=== PATIENT | male | born 1990 | race Two or more races ===

== ENCOUNTER 2020-12-15 05:40 | Emergency (ER) | payer BC ==
[2020-12-15] MEDS ORDERED: traMADol 50 MG Tab PO ONE (06:09)
[2020-12-15] MEDS ORDERED: Ibuprofen 600 MG Tab PO ONE (06:09)
--- NOTE | 2020-12-15 06:09 | EDM.PDOC ---
<LemuelMaurisio morales - Last Filed: 12/15/20 06:09> ED HPI GENERAL MEDICAL PROBLEM - General Chief Complaint: Lower Extremity Injury/Pain Stated Complaint: RIGHT ANKLE INJURY Time Seen by Provider: 12/15/20 05:57 - History of Present Illness INITIAL COMMENTS - FREE TEXT/NARRATIVE: HISTORY AND PHYSICAL: History of present illness: This is a 30-year-old gentleman who presents ER today complaining of pain to his right ankle since Monday. Patient reports he has no clear memory recollection of injuring his ankle but remembers that starting Monday he started having pain and discomfort to the medial malleolus of his right ankle. Patient denies any recent fall, exertion, inversion or eversion injuries. Patient reports he had significant dental pain discomfort with weightbearing or ambulation. Patient reports he has had no prior significant injuries to his right ankle other than mild sprains in the past. Patient denies any history of hypertension, diabetes, liver, lung, kidney problems. Patient has no known drug allergies. Patient denies any tobacco alcohol or drugs. Review of systems: As per history of present illness and below otherwise all systems reviewed and negative. Past medical history: As per history of present illness and as reviewed below otherwise noncontributory. Surgical history: As per history of present illness and as reviewed below otherwise noncontributory. Social history: No reported history of drug or alcohol abuse. Family history: As per history of present illness and as reviewed below otherwise noncontributory. Physical exam: This patient was seen and evaluated during the 2019 SARS-CoV-2 novel coronavirus pandemic period. Community viral transmission is ongoing at time of this encounter and the emergency department is operating under pandemic response procedures. Constitutional: Patient is oriented to person, place, and time. Appears well- developed and well-nourished. No distress. HEENT: Moist mucous membranes Head: Normocephalic and atraumatic Eyes: Right eye exhibits no discharge. Left eye exhibits no discharge. No scleral icterus Neck: Normal range of motion. No tracheal deviation present. Cardiovascular: Normal rate and regular rhythm. Pulmonary: Effort normal, no respiratory distress. Abdominal: No distention Musculoskeletal: Normal range of motion Neurologic: Alert and oriented to person, place and time. Skin: [place], warm and dry. Psychiatric: Normal mood and affect. Behavior is normal. Judgment and thought content normal. Nursing note and vital signs have been reviewed Patient's ER physical exam is significant for pain and discomfort to his medial malleolus of his right ankle. Patient has no pain or discomfort to his lateral malleolus. Patient does have some soft tissue swelling to the lateral malleolus however he reports that this is his normal anatomical structure. Patient's pulses are intact. Patient has full range of motion but definitely has pain and discomfort with flexion and extension. Diagnostics: Right ankle x-ray Therapeutics: Motrin/Ultram Assessment and plan: 30-year-old gentleman who presents ER today complaining of pain to his right ankle. Patient is unaware of how or when he injured it but he reports he has been having pain since Monday, 4 days ago. Patient's blood pressure is markedly elevated here in the ED. Patient denies any history of hypertension. Is unclear whether or not this is related solely to his pain or combination of pain and essential hypertension. Patient will need to follow-up with his primary care physician for further evaluation of his hypertension once discharged. Definitive disposition and diagnosis as appropriate pending reevaluation and review of above. right ankle Pain Score (Numeric/FACES): 9 - Related Data Allergies Allergy/AdvReac Type Severity Reaction Status Date / Time No Known Allergies Allergy Verified 12/15/20 05:57 Home Meds: Home Meds . [No Known Home Meds] 12/15/20 [History] Past Medical History - Past Health History Medical/Surgical History: Denies Medical/Surgical History - Infectious Disease History Infectious Disease History: Reports: Chicken Pox Review of Systems - Review of Systems Review Of Systems: See Below ED EXAM, GENERAL - Physical Exam Exam: See Below Departure - Departure Disposition: Home, Self-Care 01 Clinical Impression: Elevated blood pressure reading, Ankle sprain - Discharge Information Instructions: Ankle Sprain, [id number], Hypertension, Adult, [id number] Referrals: PCP,None [Primary Care Provider] - Forms: ED Department Discharge Additional Instructions: You evaluate today on an emergent basis. At this time there was no evidence of any fracture of your ankle. I do recommend the use of an Koffi bandage to your ankle and to keep it elevated. Please use Tylenol and Motrin for pain relief and please use ice 20 minutes 4 times a day. Please follow-up with orthopedics. Please use: Tylenol 500-1000mg every 6 hours (DO NOT TAKE MORE THAN 4000mg in 1 day) Ibuprofen 400mg every 6 hours (Take with food as it can cause ulcers, GI upset) Example schedule: 8:00 AM (Tylenol 500-1000mg) 11:00 AM (Ibuprofen 400mg) 2:00 PM (Tylenol 500-1000mg) 5:00 PM (Ibuprofen 400mg) Ice the area 20 minutes 4 times per day [facility] [address], [address] [place] [address] The patient is informed of any results of their evaluation and diagnostic workup and all questions are answered. They are given discharge instructions and return precautions. The patient is stable for discharge. The patient states they understand and agree with the plan and that they will return if their symptoms get worse or if they have any new concerns. The following information is given to patients seen in the emergency department who are being discharged to home. This information is to outline your options for follow-up care. We provide all patients seen in our emergency department with a follow-up referral. The need for follow-up, as well as the timing and circumstances, are variable depending upon the specifics of your emergency department visit. If you don't have a primary care physician on staff, we will provide you with a referral. We always advise you to contact your personal physician following an emergency department visit to inform them of the circumstance of the visit and for follow-up with them and/or the need for any referrals to a consulting specialist. The emergency department will also refer you to a specialist when appropriate. This referral assures that you have the opportunity for follow-up care with a specialist. All of these measure are taken in an effort to provide you with optimal care, which includes your follow-up. Under all circumstances we always encourage you to contact your private physician who remains a resource for coordinating your care. When calling for follow-up care, please make the office aware that this follow-up is from your recent emergency room visit. If for any reason you are refused follow-up, please contact the [facility] Emergency Department at and asked to speak to the emergency department charge nurse. Sepsis Event Note (ED) - Evaluation Sepsis Screening Result: No Definite Risk <Naseem,Hira C - Last Filed: 12/15/20 08:18> ED HPI GENERAL MEDICAL PROBLEM - History of Present Illness INITIAL COMMENTS - FREE TEXT/NARRATIVE: Patient was signed out to me by Dr. Hdez pending x-ray at 6 AM I did reevaluate the patient and patient was resting comfortably on stretcher. On my evaluation the patient did have right medial malleoli or tenderness without any erythema, warmth. The patient at this time stated that the pain medication had significantly helped with his pain. At the time of my reevaluation the patient's x-ray had not yet been read. The radiological images were viewed by myself along with reading the report from the radiologist. Right ankle x-ray reveals no evidence of fracture or dislocation with the ankle mortise intact. There is some soft tissue swelling. After imaging I did discuss the results with the patient. I did discuss the use of Tylenol and Motrin for pain relief and to use an Koffi bandage for compression. I recommended that he keep his extremity elevated while at home and to use ice 20 minutes 4 times a day. I did discuss with him that he could use crutches and that he should follow-up with orthopedics. He was amenable to discharge at this time and had no further questions. DISPOSITION: The patient was discharged home in stable condition. The patient will follow up with orthopedics within 1 week CONDITION: Fair PROCEDURES: None FINAL IMPRESSION(S)/DIAGNOSES: 1. Acute right ankle sprain DME: Crutches Indication: Right ankle sprain Benefit: Ambulation Duration: Until follow-up with orthopedics Hira Gusman M.D. Course - Vital Signs Last Recorded V/S: Last Vital Signs Temp 35.6 C L 12/15/20 05:57 Pulse 111 H 12/15/20 05:57 Resp 18 12/15/20 05:57 BP 169/114 H 12/15/20 05:57 Pulse Ox 92 L 12/15/20 05:57 - Orders/Labs/Meds Orders: Active Orders 24 hr Category Date Time Status DME for Discharge [COMM] Stat Oth 12/15/20 08:03 Ordered Meds: Medications Discontinued Medications Generic Name Dose Route Start Last Admin Trade Name Freq PRN Reason Stop Dose Admin Ibuprofen 600 mg 12/15/20 06:09 12/15/20 06:38 Ibuprofen 600 Mg Tab PO 12/15/20 06:10 600 mg ONETIME ONE Administration Tramadol HCl 50 mg 12/15/20 06:09 12/15/20 06:39 Tramadol 50 Mg Tab PO 12/15/20 06:10 50 mg ONETIME ONE Administration Departure - Departure Time of Disposition: 08:03 - Discharge Information *PRESCRIPTION DRUG MONITORING PROGRAM REVIEWED*: No *COPY OF PRESCRIPTION DRUG MONITORING REPORT IN PATIENT KENDELL: No Sepsis Event Note (ED) - Focused Exam Vital Signs: Vital Signs Temp Pulse Resp BP Pulse Ox 12/15/20 05:57 35.6 C L 111 H 18 169/114 H 92 L - My Orders Last 24 Hours: My Active Orders 12/15/20 08:03 DME for Discharge [COMM] Stat - Assessment/Plan Last 24 Hours: My Active Orders 12/15/20 08:03 DME for Discharge [COMM] Stat
--- NOTE | 2020-12-15 07:26 | CR ---
Indication: Pain and swelling. Technique: Right ankle 3 views. Comparison: None. Findings: No acute fracture or dislocation. Ankle mortise is intact. Mild soft tissue swelling about the ankle. Impression: Mild soft tissue swelling around the ankle. No other acute findings. Dictated by Flores Marr MD @ Dec 15 2020 7:24AM Signed by Dr. Flores Marr @ Dec 15 2020 7:25AM
== END 2020-12-15 08:30 | disposition home or self-care (01) ==
LOC: MW.ED 05:40
DX: S93.401A Sprain of unspecified ligament of right ankle, initial encounter (principal); R03.0 Elevated blood-pressure reading, without diagnosis of hypertension; X58.XXXA Exposure to other specified factors, initial encounter
CPT/HCPCS: 73610; 99283; A9270

== ENCOUNTER 2021-04-26 06:09 | Emergency (ER) | payer BC ==
[2021-04-26] MEDS ORDERED: Ketorolac 15 MG/ML SDV IM ONE (07:00)
--- NOTE | 2021-04-26 08:17 | CR ---
INDICATION: Fever . Comparison :none. TECHNIQUE: Portable AP chest. FINDINGS: A 6 x 5 cm area of consolidation right upper lobe indicating pneumonia. No pneumothorax or pleural effusion. Normal size cardiac silhouette. IMPRESSION: 1. A 6 x 5 cm area of consolidation right upper lobe most likely representing pneumonia. 2. Followup chest radiograph after treatment with appropriate antibiotics suggested. Dictated by Casimiro Bocangera MD @ 04/26/2021 8:15:[address] Casimiro Bocanegra @ Apr 26 2021 8:15AM
--- NOTE | 2021-04-26 11:13 | CT ---
INDICATION: Right upper lobe infiltrate; further assessment ; Rule out PE. COMPARISON: Portable AP chest April 26, 2021. TECHNIQUE: CT chest with intravenous contrast; coronal and sagittal reformats. FINDINGS: No evidence of pulmonary thromboembolism. Extensive areas of alveolar consolidation both lungs diffuse; diagnostic of COVID-19 pneumonia. Large area of alveolar consolidation right upper lobe again secondary to COVID pneumonia. No abnormal mediastinal or hilar lymphadenopathy. No evidence of pleural effusion. No evidence of aortic aneurysm or dissection. Normal size cardiac silhouette without any evidence of pericardial effusion. Limited CT through the upper abdomen is unremarkable. 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 IMPRESSION: 1. Extensive patchy areas of scattered alveolar consolidation both lungs diffuse; largest area in the right upper lobe; diagnostic of COVID-19 infection. 2. No evidence of pulmonary thromboembolism. Please note that all CT scans at this facility use dose modulation, iterative reconstruction, and/or weight-based dosing when appropriate to reduce radiation dose to as low as reasonably achievable. Dictated by Casimiro Bocanegra MD @ 04/26/2021 11:12:[address] Casimiro Bocanegra @ Apr 26 2021 11:12AM
--- NOTE | 2021-04-26 11:31 | EDM.PDOC ---
ED HPI GENERAL MEDICAL PROBLEM - General Chief Complaint: Fever Stated Complaint: FEVER Time Seen by Provider: 04/26/21 07:16 - History of Present Illness INITIAL COMMENTS - FREE TEXT/NARRATIVE: CHIEF COMPLAINT(S): Fever HISTORY OF PRESENT ILLNESS: This is a 30-year-old man with a past medical history of obesity and reported preasthma and prehypertension who comes to the emergency department with a chief complaint of fever. The patient states that for approximately 5 days now he has been experiencing a fever. She states that this started in the evening on with some chills. The highest fever he got was 102.3 and he has associated cough which is nonproductive and a stuffy nose. He states that his tested positive approximately 4 days ago for Covid but he tested negative on . He has not yet taken any medications. He did not have any change in smell but does have a decreased appetite. He states he has been taken Motrin and DayQuil with some relief. He has had a headache in addition to all the symptoms in the back of his head without any associated double vision, blurry vision, numbness, tingling, or weakness. He states that he is not vaccinated but at sometimes he does feel lightheaded. In addition to this he is concerned because his blood pressure has been elevated throughout the evening. His who is on his cell phone states that his blood pressure has been in the 150s systolic all throughout the evening and she thinks he is to be on medication for this. He denies any chest pain, lower extremity edema, recent travel recent surgery or prior history of DVT or PE. REVIEW OF SYSTEMS: Constitutional: Positive for fever and decreased appetite Eyes: Denies eye pain Ears, Nose, Mouth, & Throat: Positive for sinus congestion denies earache Cardiovascular: Denies chest pain Respiratory: Positive for cough Gastrointestinal: Denies Nausea, vomiting, diarrhea, hematochezia. Genitourinary: Denies hematuria Skin:Denies a rash MSK: Denies joint pain Neurological: Positive for headache. Denies blurred vision, numbness, tingling, weakness psychiatric: Denies depression PAST MEDICAL HISTORY: As per history of present illness and as reviewed below otherwise noncontributory. SURGICAL HISTORY: As per history of present illness and as reviewed below otherwise noncontributory. SOCIAL HISTORY: As per history of present illness and as reviewed below otherwis e noncontributory. FAMILY HISTORY: As per history of present illness and as reviewed below otherwise noncontributory. EXAMINATION OF ORGAN SYSTEMS/BODY AREAS: Constitutional: Blood pressure was 130/80, heart rate 103, respiratory rate 18 with an oxygen saturation of 98% on room air. Temperature 38.9 General: Morbidly obese gentleman who does not appear to be in acute distress. Psychiatric: Appropriate mood and affect. Eyes: No scleral icterus or conjunctival erythema ENMT: Moist mucous membranes. No pharyngeal erythema Cardiovascular: Regular, rate, and rhythm. No gallops, murmurs, or rubs. Bilateral upper extremity pulses symmetric and intact. No peripheral edema. No JVD. Respiratory: Lungs clear to auscultation bilaterally. No wheezes, rales, or rhonchi. Gastrointestinal: Soft, non-tender, non-distended. Normoactive bowel sounds Genitourinary: No suprapubic tenderness Musculoskeletal: Normal range of motion. Skin: No lesions or abrasions. Neurological: Alert, GCS 15 MEDICAL DECISION MAKING AND COURSE IN THE ED WITH INTERPRETATION/REVIEW OF DIAGNOSTIC STUDIES: This is a 30-year-old man with a past medical history of obesity and reported preasthma and prehypertension who comes to the emergency department with 5 days of fever, headache, and decreased appetite with a known COVID-19 exposure. At this time we will provide the patient with Toradol for his headache and for the fever. Will obtain a Covid swab and obtain a chest x- ray. I did discuss with the patient and his on the phone that I do not believe any blood pressure medication is indicated at this time. I did discuss with him that his blood pressure here is within normal limits and that it would be important to follow-up with a primary care physician so that if the medication needs to be started they can follow-up for the results. At this time there is no emergent or urgent need to begin an antihypertensive. They were amenable to this plan. The radiological images were viewed by myself along with reading the report from the radiologist. Chest x-ray reveals a right upper lung consolidation likely representing a pneumonia. Given the chest x-ray findings and given that it is pretty atypical for a COVID- 19 pneumonia to present with an upper lobe pneumonia I did discuss exposures with the patient. He states that he has had a false positive TB test in the past but has never been diagnosed with TB. He has had the appropriate screening and has never tested positive. At this time I did discuss with him that given the upper lung pneumonia I would like to obtain a CT angiogram to evaluate for pulmonary embolism. He was amenable to this plan. After a lengthy discussion to obtain an angiogram of the chest the patient contacted his father on the phone. His father stated that he was in the emergency department himself a while back and became short of breath with the IV contrast. I did discuss with the father and the patient at this time that although he may have had a reaction to the contrast dye his son may not have the reaction. I did discuss with them at this time that he is in the appropriate place if he is to have a reaction and I do believe the angiogram of the chest is indicated and the benefit outweighed the risk. Therefore they were amenable to obtaining the CT. After placement of the IV the patient had a vasovagal syncopal episode falling forward. He did not hit his head or have any loss of consciousness. The patient was diaphoretic. I did obtain a [id number] glucose which was normal. I did provide patient with 1 L of lactated Ringer's bolus while we await CT. Laboratory: [id number] glucose was 143, COVID-19 was positive. The radiological images were viewed by myself along with reading the report from the radiologist. CT angiogram of the chest does not reveal any evidence of pulmonary embolism. There is extensive patchy areas of scattered alveolar consolidation in both lungs with the largest area in the right upper lobe diagnostic of COVID-19 infection. I did discuss the results with the patient. At this time I did discuss that he needed to isolate at home and discussed treatment plan. He was amenable to discharge at this time and was given strict return precautions. Prior to discharge the patient inquired about obtaining steroids as his was put on steroids when she was diagnosed with COVID-19. I discussed with him at this time that according to protocol and given that he is not requiring supplemental oxygenation that steroids are not indicated at this time. He is to monitor his oxygen saturation at home and is to return if it decreases. He was amenable to discharge at this time and had no further questions DISPOSITION: The patient was discharged home in stable condition. The patient will follow up with primary care physician CONDITION: Fair PROCEDURES: None FINAL IMPRESSION(S)/DIAGNOSES: 1. Acute COVID-19 infection Hira Gusman M.D. - Related Data Allergies Allergy/AdvReac Type Severity Reaction Status Date / Time No Known Allergies Allergy Verified 04/26/21 06:59 Home Meds: Home Meds Azithromycin 500 mg PO ONETIME #1 tablet 04/26/21 [Rx] Azithromycin [Zithromax] 250 mg PO DAILY #4 tab 04/26/21 [Rx] Ondansetron [Zofran ODT] 4 mg PO Q6H PRN #8 tab.dis 04/26/21 [Rx] Past Medical History - Past Health History Medical/Surgical History: Denies Medical/Surgical History HEENT History: Reports: None Cardiovascular History: Reports: None Respiratory History: Reports: None Gastrointestinal History: Reports: None Genitourinary History: Reports: None Musculoskeletal History: Reports: None Neurological History: Reports: None Psychiatric History: Reports: None Endocrine/Metabolic History: Reports: None Hematologic History: Reports: None Immunologic History: Reports: None Oncologic (Cancer) History: Reports: None Dermatologic History: Reports: None - Infectious Disease History Infectious Disease History: Reports: Chicken Pox - Past Surgical History Head Surgeries/Procedures: Reports: None Social & Family History - Family History Family Medical History: No Pertinent Family History - Tobacco Use Tobacco Use Status *Q: Never Tobacco User Second Hand Smoke Exposure: No - Caffeine Use Caffeine Use: Reports: None - Recreational Drug Use Recreational Drug Use: No ED ROS GENERAL - Review of Systems Review Of Systems: See Below ED EXAM, GENERAL - Physical Exam Exam: See Below Course - Vital Signs Last Recorded V/S: Last Vital Signs Temp 37.2 C 04/26/21 09:19 Pulse 98 04/26/21 09:19 Resp 18 04/26/21 09:19 BP 124/86 04/26/21 09:19 Pulse Ox 94 L 04/26/21 09:19 - Orders/Labs/Meds Labs: Laboratory Tests 04/26/21 04/26/21 Range/Units 08:40 09:16 POC Glucose 143 H (70-99) mg/dL SARS-CoV-2 RNA (RONALD) POSITIVE H (NEGATIVE) Meds: Medications Discontinued Medications Generic Name Dose Route Start Last Admin Trade Name Freq PRN Reason Stop Dose Admin Iopamidol 100 ml 04/26/21 17:06 04/26/21 17:06 Iopamidol 755 Mg/Ml 500 Ml Multipack Bottle IVPUSH 04/26/21 17:07 100 ml ONETIME STA Administration Ketorolac Tromethamine 30 mg 04/26/21 07:00 04/26/21 07:15 Ketorolac 15 Mg/Ml Sdv IM 04/26/21 07:01 30 mg ONETIME ONE Administration Departure - Departure Time of Disposition: 11:26 Disposition: Home, Self-Care 01 Condition: Fair Clinical Impression: COVID, Pneumonia - Discharge Information Prescriptions: Azithromycin 500 mg PO ONETIME #1 tablet Azithromycin [Zithromax] 250 mg PO DAILY #4 tab Ondansetron [Zofran ODT] 4 mg PO Q6H PRN #8 tab.dis PRN Reason: Nausea/Vomiting Instructions: What You Should Know About COVID-19 to Protect Yourself and Others - CDC, 10 Things You Can Do to Manage Your COVID-19 Symptoms at Home - CDC (02/26/2020), Fever, Adult, [id number], Community-Acquired Pneumonia, Adult, [id number] Referrals: Misbah Crowell MD [Primary Care Provider] - Forms: ED Department Discharge Additional Instructions: You were evaluated today on an emergent basis. At this time we did undergo multiple imaging studies. Your chest x-ray did show a right upper lobe pneumonia. As discussed with you the this is atypical and we did obtain a Covid swab and a CT to further differentiate if we needed to work-up for tuberculosis given your false positive test in the past. The CT of your chest did not reveal any clots and according to the radiologist they are saying that this pattern on CT including the right upper lobe pneumonia is consistent with COVID-19 pneumonia. At this time in discussion with you we decided to do antibiotics for a 5-day course. I will provide you with Zofran for nausea relief. This can be used every 6 hours as needed for nausea. As discussed your blood pressure was a little bit elevated when he arrived to the emergency department but then returned to normal. At this time I do not believe any blood pressure medication is indicated and I would like you to follow-up with your primary care physician for further management if you are concerned about your hypertension. As discussed I do not recommend taking your blood pressure randomly as it is inaccurate as her blood pressure fluctuates throughout the day. If you are to check your blood pressure it is going to be in the morning approximately 15 minutes after awakening and while sitting in a position for approximately 5 minutes and relaxed. While in the emergency department you did have a syncopal episode which I do believe is secondary to vasovagal syncope and likely mild dehydration given that you have not been tolerating fluid as much as before. I recommend continued fluid hydration at home with Gatorade and Pedialyte. In addition I know your father was concerned about a allergic reaction with contrast. We did obtain the CT today with contrast and you did not have a reaction. You should take acetaminophen 500-1000 mg every 6 hours as needed for fever and muscle aches. Please drink plenty of fluids and get plenty of rest over the next several days. We would recommend that she get a pulse oximeter from the pharmacy to keep an eye on your oxygen level. If your oxygen level drops below 91%, you should return to the ED for evaluation. As discussed I do believe that given you do snore you have a degree of sleep apnea therefore I do not believe you should check your oxygen saturation at night as it will likely be lower than 91% given the presumed obstructive sleep apnea. You should return to the ER sooner if you start having any symptoms of shortness of breath or any other new or concerning symptoms. 1. Your COVID-19 screening is positive. That means you do have the coronavirus and you are considered contagious. Your vital signs and oxygen saturation are well enough that you were able to monitor your symptoms at home. Continue to monitor for trouble breathing, new confusion or inability to arouse, bluish lips or face or any of the other symptoms we discussed -if this occurs please return to the emergency room. 2. Please self quarantine over the next 10 days. Inform any persons that you have been in contact with since you started becoming symptomatic that you have tested positive; they should be made aware and take the appropriate steps as needed. 3. May alternate Tylenol and ibuprofen as needed for pain and fever management. 4. The [facility] department will be calling you and following up with you. The [place] COVID 19 Hotline phone number , They are open Monday - Monday 7am - 7pm. Follow up with your primary care provider for re-evaluation and re-testing after the 10 day quarantine and discuss when you should be seen. [facility] - Primary [facility] [address] [place] [address] [facility] [address] [place] [address] The patient is informed of any results of their evaluation and diagnostic workup and all questions are answered. They are given discharge instructions and return precautions. The patient is stable for discharge. The patient states they understand and agree with the plan and that they will return if their symptoms get worse or if they have any new concerns. The following information is given to patients seen in the emergency department who are being discharged to home. This information is to outline your options for follow-up care. We provide all patients seen in our emergency department with a follow-up referral. The need for follow-up, as well as the timing and circumstances, are variable depending upon the specifics of your emergency department visit. If you don't have a primary care physician on staff, we will provide you with a referral. We always advise you to contact your personal physician following an emergency department visit to inform them of the circumstance of the visit and for follow-up with them and/or the need for any referrals to a consulting specialist. The emergency department will also refer you to a specialist when appropriate. This referral assures that you have the opportunity for follow-up care with a specialist. All of these measure are taken in an effort to provide you with optimal care, which includes your follow-up. Under all circumstances we always encourage you to contact your private physician who remains a resource for coordinating your care. When calling for follow-up care, please make the office aware that this follow-up is from your recent emergency room visit. If for any reason you are refused follow-up, please contact the [facility] Emergency Department at and asked to speak to the emergency department charge nurse. Sepsis Event Note (ED) - Evaluation Sepsis Screening Result: Possible Severe Sepsis Risk
[2021-04-26] MEDS ORDERED: Iopamidol 755 MG/ML 500 ML Multipack Bottle IVPUSH STA (17:06)
== END 2021-04-26 11:43 | disposition home or self-care (01) ==
LOC: MW.ED 06:09
DX: U07.1 COVID-19 (principal); J12.82 Pneumonia due to coronavirus disease 2019; E66.9 Obesity, unspecified; Z68.41 Body mass index [BMI] 40.0-44.9, adult
CPT/HCPCS: 71045; 71275; 82947; 87635; 96372; 99284; J1885; Q9967; U0002

== ENCOUNTER 2021-04-30 07:49 | Emergency (ER) | payer OTHER, BC ==
[2021-04-30] MEDS ORDERED: Acetaminophen 500 MG Tab PO ONE (07:55)
[2021-04-30] MEDS ORDERED: Dexamethasone 10 MG/ML SDV IVPUSH ONE (07:55)
[2021-04-30] MEDS ORDERED: Sodium Chloride 0.9% 10 ML Syringe FLUSH PRN (07:55)
[2021-04-30] MEDS ORDERED: Sodium Chloride 0.9% 2.5 ML Syringe FLUSH PRN (07:55)
--- NOTE | 2021-04-30 07:58 | EDM.PDOC ---
ED HPI GENERAL MEDICAL PROBLEM - General Stated Complaint: SHORTNESS OF BREATH Time Seen by Provider: 04/30/21 07:52 Source of Information: Reports: Patient History Limitations: Reports: No Limitations - History of Present Illness INITIAL COMMENTS - FREE TEXT/NARRATIVE: 30-year-old male presents for worsening shortness of breath and hypoxia in setting of known COVID-19 infection. Patient was diagnosed with COVID-19 on 830. He was sent home with azithromycin as he also had a right upper lobe infiltrate concerning for bacterial superinfection. He has been monitoring his oxygen level and notes that this morning it was in the low 80s. He also noted a period of low heart rate in the 40s and felt like he was about to pass out. He denies any chest pain. He does feel shortness of breath. He notes a persistent cough and fever. - Related Data Allergies Allergy/AdvReac Type Severity Reaction Status Date / Time No Known Allergies Allergy Verified 04/30/21 08:01 Home Meds: Home Meds Azithromycin 500 mg PO ONETIME #1 tablet 04/26/21 [Rx] Azithromycin [Zithromax] 250 mg PO DAILY #4 tab 04/26/21 [Rx] Ondansetron [Zofran ODT] 4 mg PO Q6H PRN #8 tab.dis 04/26/21 [Rx] Past Medical History - Past Health History Medical/Surgical History: Denies Medical/Surgical History HEENT History: Reports: None Cardiovascular History: Reports: None Respiratory History: Reports: None Gastrointestinal History: Reports: None Genitourinary History: Reports: None Musculoskeletal History: Reports: None Neurological History: Reports: None Psychiatric History: Reports: None Endocrine/Metabolic History: Reports: None Hematologic History: Reports: None Immunologic History: Reports: None Oncologic (Cancer) History: Reports: None Dermatologic History: Reports: None - Infectious Disease History Infectious Disease History: Reports: Chicken Pox - Past Surgical History Head Surgeries/Procedures: Reports: None Social & Family History - Family History Family Medical History: No Pertinent Family History - Caffeine Use Caffeine Use: Reports: None ED ROS GENERAL - Review of Systems Review Of Systems: Comprehensive ROS is negative, except as noted in HPI. ED EXAM, GENERAL - Physical Exam Exam: See Below Exam Limited By: No Limitations General Appearance: Alert, WD/WN, No Apparent Distress Ears: Hearing Grossly Normal Throat/Mouth: Normal Voice, No Airway Compromise Head: Atraumatic, Normocephalic Neck: Normal Inspection Respiratory/Chest: No Respiratory Distress, Lungs Clear, Normal Breath Sounds, No Accessory Muscle Use Cardiovascular: Normal Peripheral Pulses, Tachycardia Extremities: Normal Inspection Neurological: Alert, Normal Cognition, Normal Gait Psychiatric: Normal Affect, Normal Mood Skin Exam: Warm, Dry, Intact, Normal Color #1 Interpretation EKG Date: 04/30/21 Time: 08:11 Rhythm: NSR Rate (Beats/Min): 103 [place]: Normal P-Wave: Present QRS: Normal ST-T: Normal QT: Normal MS/PQ Interval: 143 EKG Interpretation Comments: sinus tachycardia, otherwise normal EKG Course - Vital Signs Last Recorded V/S: Last Vital Signs Temp 98 F 04/30/21 08:01 Pulse 109 H 04/30/21 08:01 Resp 20 04/30/21 08:01 BP 136/95 H 04/30/21 08:01 Pulse Ox 89 L 04/30/21 08:01 - Orders/Labs/Meds Orders: Active Orders 24 hr Category Date Time Status Pulse Oximetry [RC] ASDIRECTED Care 04/30/21 07:55 Active Sodium Chloride 0.9% [Saline Flush] Med 04/30/21 07:55 Active 10 ml FLUSH ASDIRECTED PRN Sodium Chloride 0.9% [Saline Flush] Med 04/30/21 07:55 Active 2.5 ml FLUSH ASDIRECTED PRN Saline Lock Insert [OM.PC] Stat Oth 04/30/21 07:55 Ordered Medication Orders Sodium Chloride (Sodium Chloride 0.9% 10 Ml Syringe) 10 ml FLUSH ASDIRECTED PRN PRN Reason: Keep Vein Open Last Admin: 04/30/21 08:06 Dose: 10 ml Documented by: FAUSTO Sodium Chloride (Sodium Chloride 0.9% 2.5 Ml Syringe) 2.5 ml FLUSH ASDIRECTED PRN PRN Reason: Keep Vein Open Last Admin: 04/30/21 08:06 Dose: 2.5 ml Documented by: FAUSTO Labs: Laboratory Tests 04/30/21 04/30/21 04/30/21 Range/Units 07:58 07:58 07:58 WBC 4.66 (4.0-11.0) K/uL RBC 4.81 (4.50-5.90) M/uL Hgb 15.2 (13.0-17.0) g/dL Hct 43.4 (38.0-50.0) % MCV 90.2 (80.0-98.0) fL MCH 31.6 (27.0-32.0) pg MCHC 35.0 (31.0-37.0) g/dL RDW Std Deviation 38.7 (28.0-62.0) fl RDW Coeff of Angelica 12 (11.0-15.0) % Plt Count 169 (150-400) K/uL MPV 9.50 (7.40-12.00) fL Neut % (Auto) 65.0 (48.0-80.0) % Lymph % (Auto) 25.3 (16.0-40.0) % [place] % (Auto) 9.7 (0.0-15.0) % Eos % (Auto) 0.0 (0.0-7.0) % Baso % (Auto) 0.0 (0.0-1.5) % Neut # (Auto) 3.0 (1.4-5.7) K/uL Lymph # (Auto) 1.2 (0.6-2.4) K/uL [place] # (Auto) 0.5 (0.0-0.8) K/uL Eos # (Auto) 0.0 (0.0-0.7) K/uL Baso # (Auto) 0.0 (0.0-0.1) K/uL Nucleated RBC % 0.0 /100WBC Nucleated RBCs # 0 K/uL INR APTT (18.6-31.3) SEC D-Dimer, Quantitative 0.82 H (0.0-0.50) mg/L FEU Sodium 137 (136-148) mmol/L Potassium 4.4 (3.5-5.1) mmol/L Chloride 101 (98-107) mmol/L Carbon Dioxide 27.8 (21.0-32.0) mmol/L BUN 12 (7.0-18.0) mg/dL Creatinine 1.4 H (0.8-1.3) mg/dL Est Cr Clr Drug Dosing 72.13 mL/min Estimated GFR (MDRD) 59.5 ml/min Glucose 114 H (74-106) mg/dL Lactic Acid (0.4-2.0) mmol/L Calcium 8.4 L (8.5-10.1) mg/dL Total Bilirubin 0.5 (0.2-1.0) mg/dL AST 57 H (15-37) IU/L ALT 67 H (14-63) IU/L Alkaline Phosphatase 52 (46-116) U/L Troponin I < 0.050 (0.000-0.056) ng/mL C-Reactive Protein 3.50 H (0.00-0.90) mg/dL B-Natriuretic Peptide (<100) PG/ML Total Protein 7.6 (6.4-8.2) g/dL Albumin 3.8 (3.4-5.0) g/dL Globulin 3.8 (2.6-4.0) g/dL Albumin/Globulin Ratio 1.0 (0.9-1.6) 04/30/21 04/30/21 04/30/21 Range/Units 07:58 07:58 07:58 WBC (4.0-11.0) K/uL RBC (4.50-5.90) M/uL Hgb (13.0-17.0) g/dL Hct (38.0-50.0) % MCV (80.0-98.0) fL MCH (27.0-32.0) pg MCHC (31.0-37.0) g/dL RDW Std Deviation (28.0-62.0) fl RDW Coeff of Angelica (11.0-15.0) % Plt Count (150-400) K/uL MPV (7.40-12.00) fL Neut % (Auto) (48.0-80.0) % Lymph % (Auto) (16.0-40.0) % [place] % (Auto) (0.0-15.0) % Eos % (Auto) (0.0-7.0) % Baso % (Auto) (0.0-1.5) % Neut # (Auto) (1.4-5.7) K/uL Lymph # (Auto) (0.6-2.4) K/uL [place] # (Auto) (0.0-0.8) K/uL Eos # (Auto) (0.0-0.7) K/uL Baso # (Auto) (0.0-0.1) K/uL Nucleated RBC % /100WBC Nucleated RBCs # K/uL INR 1.03 APTT 30.3 (18.6-31.3) SEC D-Dimer, Quantitative (0.0-0.50) mg/L FEU Sodium (136-148) mmol/L Potassium (3.5-5.1) mmol/L Chloride (98-107) mmol/L Carbon Dioxide (21.0-32.0) mmol/L BUN (7.0-18.0) mg/dL Creatinine (0.8-1.3) mg/dL Est Cr Clr Drug Dosing mL/min Estimated GFR (MDRD) ml/min Glucose (74-106) mg/dL Lactic Acid 0.6 (0.4-2.0) mmol/L Calcium (8.5-10.1) mg/dL Total Bilirubin (0.2-1.0) mg/dL AST (15-37) IU/L ALT (14-63) IU/L Alkaline Phosphatase (46-116) U/L Troponin I (0.000-0.056) ng/mL C-Reactive Protein (0.00-0.90) mg/dL B-Natriuretic Peptide < 2 (<100) PG/ML Total Protein (6.4-8.2) g/dL Albumin (3.4-5.0) g/dL Globulin (2.6-4.0) g/dL Albumin/Globulin Ratio (0.9-1.6) Meds: Medications Generic Name Dose Route Start Last Admin Trade Name Danielq PRN Reason Stop Dose Admin Sodium Chloride 10 ml 04/30/21 07:55 04/30/21 08:06 Sodium Chloride 0.9% 10 Ml Syringe FLUSH 10 ml ASDIRECTED PRN Administration Keep Vein Open Sodium Chloride 2.5 ml 04/30/21 07:55 04/30/21 08:06 Sodium Chloride 0.9% 2.5 Ml Syringe FLUSH 2.5 ml ASDIRECTED PRN Administration Keep Vein Open Discontinued Medications Generic Name Dose Route Start Last Admin Trade Name Freq PRN Reason Stop Dose Admin Acetaminophen 1,000 mg 04/30/21 07:55 04/30/21 08:05 Acetaminophen 500 Mg Tab PO 04/30/21 07:56 1,000 mg ONETIME ONE Administration Dexamethasone 6 mg 04/30/21 07:55 04/30/21 08:05 Dexamethasone 10 Mg/Ml Sdv IVPUSH 04/30/21 07:56 6 mg ONETIME ONE Administration - Re-Assessments/Exams Free Text/Narrative Re-Assessment/Exam: 04/30/21 08:00 Patient presents with hypoxia in setting of known COVID-19 infection. Patient's O2 sats to improve to the upper 90s with 2 L nasal cannula. Will get labs and chest x-ray. Will give Decadron. 04/30/21 09:21 D-dimer is elevated. Will get CTA to rule pulmonary embolism. 04/30/21 11:38 CTA does not reveal pulmonary embolism. Does reveal worsening Covid pneumonia. Will reach out for home oxygen has patient might benefit consider he came in hypoxic to 88% on room air and will desat with exertion. Departure - Departure Time of Disposition: 11:43 Disposition: Home, Self-Care 01 Condition: Fair Clinical Impression: COVID - Discharge Information Instructions: COVID-19: What to Do if You Are Sick - [facility] (08/27/2020) Referrals: PCP,None [Primary Care Provider] - Additional Instructions: The following information is given to patients seen in the emergency department who are being discharged to home. This information is to outline your options for follow-up care. We provide all patients seen in our emergency department with a follow-up referral. The need for follow-up, as well as the timing and circumstances, are variable depending upon the specifics of your emergency department visit. If you don't have a primary care physician on staff, we will provide you with a referral. We always advise you to contact your personal physician following an emergency department visit to inform them of the circumstance of the visit and for follow-up with them and/or the need for any referrals to a consulting specialist. The emergency department will also refer you to a specialist when appropriate. This referral assures that you have the opportunity for follow-up care with a specialist. All of these measure are taken in an effort to provide you with optimal care, which includes your follow-up. Under all circumstances we always encourage you to contact your private physician who remains a resource for coordinating your care. When calling for follow-up care, please make the office aware that this follow-up is from your recent emergency room visit. If for any reason you are refused follow-up, please contact the [facility] Emergency Department at and asked to speak to the emergency department charge nurse. Please follow up with your primary care physician. If you do not have a primary care physician, see below: [facility] [address], [place] [phone] My [facility] [address] [place], [place] [phone] [facility] [address] [place] [address] Sepsis Event Note (ED) - Focused Exam Vital Signs: Vital Signs Temp Pulse Resp BP Pulse Ox 04/30/21 08:01 98 F 109 H 20 136/95 H 89 L - My Orders Last 24 Hours: My Active Orders 04/30/21 07:55 Pulse Oximetry [RC] ASDIRECTED Sodium Chloride 0.9% [Saline Flush] 10 ml FLUSH ASDIRECTED PRN Sodium Chloride 0.9% [Saline Flush] 2.5 ml FLUSH ASDIRECTED PRN Saline Lock Insert [OM.PC] Stat - Assessment/Plan Last 24 Hours: My Active Orders 04/30/21 07:55 Pulse Oximetry [RC] ASDIRECTED Sodium Chloride 0.9% [Saline Flush] 10 ml FLUSH ASDIRECTED PRN Sodium Chloride 0.9% [Saline Flush] 2.5 ml FLUSH ASDIRECTED PRN Saline Lock Insert [OM.PC] Stat
[2021-04-30 08:34] LABS: BLOOD UREA NITROGEN,BUN 12 mg/dL (7.0-18.0); CARBON DIOXIDE,CO2 27.8 mmol/L (21.0-32.0); CHLORIDE,CL 101 mmol/L (98-107); GLUCOSE RANDOM 114 mg/dL (74-106); POTASSIUM,K 4.4 mmol/L (3.5-5.1); SODIUM,NA 137 mmol/L (136-148)
--- NOTE | 2021-04-30 09:33 | CR ---
Indication: COVID pneumonitis Technique: Chest 1 view Comparison: 04/26/2021 Findings/Impression: Cardiovascular and mediastinum: Heart size and vasculature are normal in caliber and appearance. Lungs and pleural space: Persistent but improved subtle right upper lobe infiltrate. A new smaller infiltrate appears to be present in the left upper lobe. Remainder of the lungs and pleural spaces are clear. Bones and soft tissues: No acute findings. Dictated by Chevy Evans MD @ 04/30/2021 9:32:19 AM (Electronically Signed)
--- NOTE | 2021-04-30 11:37 | CT ---
INDICATION: Positive COVID with worsening hypoxia. TECHNIQUE: CT chest PE was acquired with 75 cc Isovue 370 IV contrast. COMPARISON: April 26, 2021. FINDINGS: Heart and vasculature: Contrast opacification of the pulmonary arterial tree is adequate. No sign of pulmonary embolism. Heart size is normal. Thoracic aorta and pulmonary artery are normal in caliber. Lungs and pleural: Diffuse bilateral patchy ground-glass infiltrates have definitely worsened. No effusions and no pneumothorax. No pleural effusions, pleural thickening, or pneumothorax. Lymph nodes/mediastinum: No mediastinal, hilar, or axillary adenopathy. Chest wall: No masses. Upper abdomen: Normal. Bones: Unremarkable for age. IMPRESSION: 1. No pulmonary embolism. 2. Interval worsening of severe COVID pneumonitis. Please note that all CT scans at this facility use dose modulation, iterative reconstruction, and/or weight-based dosing when appropriate to reduce radiation dose to as low as reasonably achievable. Dictated by Chevy Evans MD @ 04/30/2021 11:36:42 AM (Electronically Signed)
== END 2021-04-30 14:10 | disposition home or self-care (01) ==
LOC: MW.ED 07:49
DX: U07.1 COVID-19 (principal); R00.0 Tachycardia, unspecified
CPT/HCPCS: 36415; 71045; 71275; 80053; 83605; 83880; 84484; 85025; 85379; 85610; 85730; 86140; 93005; 96374; 99285; A9270; J1100

== ENCOUNTER 2021-05-06 02:24 | Emergency (ER) | payer OTHER, BC ==
--- NOTE | 2021-05-06 02:47 | EDM.PDOC ---
ED HPI GENERAL MEDICAL PROBLEM - General Chief Complaint: Respiratory Problem Stated Complaint: CHEST PAIN Time Seen by Provider: 05/06/21 02:25 Source of Information: Reports: Patient History Limitations: Reports: No Limitations - History of Present Illness INITIAL COMMENTS - FREE TEXT/NARRATIVE: Patient is a 30-year-old male who presents today for epigastric/chest pain. Patient is dealing with Covid and is on home oxygen. States that he woke up with pain achiness epigastric area the last for a few minutes and resolved on his own. He is only back down when it came on again this time lasted shorter but still a few minutes. He did noticing that it made the pain worse nothing made the pain better. He did not take any medication for the resolved on his own. He currently is to have any pain in the area. Denies any new shortness of breath or other complaints. He has been doing well on his 2 L of oxygen at home. The 95% right now nasal cannula. 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, Oxygen - Related Data Allergies Allergy/AdvReac Type Severity Reaction Status Date / Time No Known Allergies Allergy Verified 05/06/21 02:37 Home Meds: Home Meds Ondansetron [Zofran ODT] 4 mg PO Q6H PRN #8 tab.dis 04/26/21 [Rx] dexAMETHasone [Decadron] 6 mg PO DAILY #7 tablet 04/30/21 [Rx] Past Medical History - Past Health History Medical/Surgical History: Denies Medical/Surgical History HEENT History: Reports: None Cardiovascular History: Reports: Other (See Below) Other Cardiovascular History: "pre hypertension" Respiratory History: Reports: Other (See Below) Other Respiratory History: covid 04/30/21 Gastrointestinal History: Reports: None Genitourinary History: Reports: None Musculoskeletal History: Reports: None Neurological History: Reports: None Psychiatric History: Reports: None Endocrine/Metabolic History: Reports: None Hematologic History: Reports: None Immunologic History: Reports: None Oncologic (Cancer) History: Reports: None Dermatologic History: Reports: None - Infectious Disease History Infectious Disease History: Reports: Chicken Pox - Past Surgical History Head Surgeries/Procedures: Reports: None Social & Family History - Family History Family Medical History: No Pertinent Family History - Tobacco Use Tobacco Use Status *Q: Never Tobacco User Second Hand Smoke Exposure: No - Caffeine Use Caffeine Use: Reports: None - Recreational Drug Use Recreational Drug Use: No ED ROS GENERAL - Review of Systems Review Of Systems: See Below Constitutional: Reports: No Symptoms HEENT: Reports: No Symptoms Respiratory: Reports: No Symptoms Cardiovascular: Reports: Chest Pain Endocrine: Reports: No Symptoms GI/Abdominal: Reports: No Symptoms : Reports: No Symptoms Musculoskeletal: Reports: No Symptoms Skin: Reports: No Symptoms Neurological: Reports: No Symptoms Psychiatric: Reports: No Symptoms Hematologic/Lymphatic: Reports: No Symptoms Immunologic: Reports: No Symptoms ED EXAM, GENERAL - Physical Exam Exam: See Below Exam Limited By: No Limitations General Appearance: Alert, WD/WN, No Apparent Distress Nose: Normal Inspection Throat/Mouth: Normal Inspection Head: Atraumatic, Normocephalic Neck: Normal Inspection, Supple, Non-Tender Respiratory/Chest: No Respiratory Distress, Lungs Clear, Normal Breath Sounds Cardiovascular: Normal Peripheral Pulses, Regular Rate, Rhythm GI/Abdominal: Normal Bowel Sounds, Soft, Non-Tender Extremities: Normal Inspection, Normal Range of Motion, Non-Tender Neurological: Alert, Oriented, CN II-XII Intact, Normal Cognition, Normal Gait #1 Interpretation EKG Date: 05/06/21 Time: 02:30 Rhythm: NSR Rate (Beats/Min): 83 ST-T: Normal Course - Vital Signs Last Recorded V/S: Last Vital Signs Temp 97.1 F 05/06/21 02:30 Pulse 77 05/06/21 04:12 Resp 18 05/06/21 04:12 BP 131/78 05/06/21 04:12 Pulse Ox 95 05/06/21 04:12 - Orders/Labs/Meds Labs: Laboratory Tests 05/06/21 05/06/21 Range/Units 02:50 02:50 WBC 12.99 H (4.0-11.0) K/uL RBC 4.70 (4.50-5.90) M/uL Hgb 15.1 (13.0-17.0) g/dL Hct 42.5 (38.0-50.0) % MCV 90.4 (80.0-98.0) fL MCH 32.1 H (27.0-32.0) pg MCHC 35.5 (31.0-37.0) g/dL RDW Std Deviation 38.4 (28.0-62.0) fl RDW Coeff of Angelica 12 (11.0-15.0) % Plt Count 445 H (150-400) K/uL MPV 8.90 (7.40-12.00) fL Neut % (Auto) 70.3 (48.0-80.0) % Lymph % (Auto) 16.4 (16.0-40.0) % [place] % (Auto) 12.9 (0.0-15.0) % Eos % (Auto) 0.2 (0.0-7.0) % Baso % (Auto) 0.2 (0.0-1.5) % Neut # (Auto) 9.1 H (1.4-5.7) K/uL Lymph # (Auto) 2.1 (0.6-2.4) K/uL [place] # (Auto) 1.7 H (0.0-0.8) K/uL Eos # (Auto) 0.0 (0.0-0.7) K/uL Baso # (Auto) 0.0 (0.0-0.1) K/uL Nucleated RBC % 0.0 /100WBC Nucleated RBCs # 0 K/uL Sodium 138 (136-148) mmol/L Potassium 4.5 (3.5-5.1) mmol/L Chloride 101 (98-107) mmol/L Carbon Dioxide 30.6 (21.0-32.0) mmol/L BUN 19 H (7.0-18.0) mg/dL Creatinine 1.2 (0.8-1.3) mg/dL Est Cr Clr Drug Dosing 84.16 mL/min Estimated GFR (MDRD) > 60.0 ml/min Glucose 114 H (74-106) mg/dL Calcium 9.0 (8.5-10.1) mg/dL Total Bilirubin 0.8 (0.2-1.0) mg/dL AST 69 H (15-37) IU/L ALT 211 H (14-63) IU/L Alkaline Phosphatase 60 (46-116) U/L Troponin I < 0.050 (0.000-0.056) ng/mL Total Protein 7.3 (6.4-8.2) g/dL Albumin 3.5 (3.4-5.0) g/dL Globulin 3.8 (2.6-4.0) g/dL Albumin/Globulin Ratio 0.9 (0.9-1.6) Lipase 241 (73-393) U/L - Re-Assessments/Exams Free Text/Narrative Re-Assessment/Exam: 05/06/21 04:13 Patient x-ray EKG reviewed. Patient will be discharged home. Departure - Departure Time of Disposition: 04:14 Disposition: Home, Self-Care 01 Condition: Good Clinical Impression: Chest pain - Discharge Information *PRESCRIPTION DRUG MONITORING PROGRAM REVIEWED*: Not Applicable *COPY OF PRESCRIPTION DRUG MONITORING REPORT IN PATIENT KENDELL: Not Applicable Instructions: Nonspecific Chest Pain, Adult, [id number] Referrals: PCP,None [Primary Care Provider] - Forms: ED Department Discharge Additional Instructions: The following information is given to patients seen in the emergency department who are being discharged to home. This information is to outline your options for follow-up care. We provide all patients seen in our emergency department with a follow-up referral. The need for follow-up, as well as the timing and circumstances, are variable depending upon the specifics of your emergency department visit. If you don't have a primary care physician on staff, we will provide you with a referral. We always advise you to contact your personal physician following an emergency department visit to inform them of the circumstance of the visit and for follow-up with them and/or the need for any referrals to a consulting specialist. The emergency department will also refer you to a specialist when appropriate. This referral assures that you have the opportunity for follow-up care with a specialist. All of these measure are taken in an effort to provide you with optimal care, which includes your follow-up. Under all circumstances we always encourage you to contact your private physician who remains a resource for coordinating your care. When calling for follow-up care, please make the office aware that this follow-up is from your recent emergency room visit. If for any reason you are refused follow-up, please contact the [facility] Emergency Department at and asked to speak to the emergency department charge nurse. Please follow up with your primary care physician. If you do not have a primary care physician, see below: [facility] [address] [place] [phone] [address] [place] [address] Seen today for pain in your chest/epigastric area. We did EKG his x-ray to rule out any cardiac cause of this pain which did not show any acute findings. Continue to have pain we recommend follow-up with your electroencephalographic technologist or primary care physician. If you have any other concerning signs or symptom please feel free to return to the ED as well. Sepsis Event Note (ED) - Evaluation Sepsis Screening Result: Possible Sepsis Risk - Focused Exam Vital Signs: Vital Signs Temp Pulse Resp BP Pulse Ox 05/06/21 04:12 77 18 131/78 95 05/06/21 02:30 97.1 F 89 21 H 131/78 94 L - Assessment/Plan Plan: Patient is a 30-year-old male who presents today for epigastric/chest pain. Patient not here for any shortness of breath or cough related symptoms. He had episodes of this epigastric chest pain that lasted for few minutes on 2 different occasions. Will obtain a EKG troponins and reassess patient.
[2021-05-06 03:19] LABS: BLOOD UREA NITROGEN,BUN 19 mg/dL (7.0-18.0); CARBON DIOXIDE,CO2 30.6 mmol/L (21.0-32.0); CHLORIDE,CL 101 mmol/L (98-107); GLUCOSE RANDOM 114 mg/dL (74-106); LIPASE 241 U/L (73-393); POTASSIUM,K 4.5 mmol/L (3.5-5.1); SODIUM,NA 138 mmol/L (136-148)
--- NOTE | 2021-05-06 04:12 | CR ---
INDICATION: Shortness of breath. COVID infection TECHNIQUE: Chest 1 view. COMPARISON: 04/30/2021 FINDINGS: Cardiovascular and mediastinum: Heart size and vasculature are normal in caliber and appearance. Mediastinum is within normal limits. Lungs and pleural space: There are increased patchy airspace and ground-glass opacities diffusely in both lungs. Particularly there is increased consolidation in the left upper lobe. . No pleural effusion. No pneumothorax. Bones and soft tissues: No acute findings. IMPRESSION: Progression of bilateral pulmonary opacities consistent with provided history of COVID-19 infection Dictated by Hieu Stanlye MD @ 05/06/2021 4:10:27 AM (Electronically Signed)
== END 2021-05-06 04:40 | disposition home or self-care (01) ==
LOC: MW.ED 02:24
DX: R07.9 Chest pain, unspecified (principal)
CPT/HCPCS: 12004; 36415; 71045; 71045-26; 80053; 83690; 84484; 85025; 93005; 99285-25

== ENCOUNTER 2021-05-06 13:29 | Emergency (ER) | payer OTHER, BC ==
[2021-05-06] MEDS ORDERED: Sodium Chloride 0.9% 10 ML Syringe FLUSH PRN (13:39)
[2021-05-06] MEDS ORDERED: Sodium Chloride 0.9% 2.5 ML Syringe FLUSH PRN (13:39)
[2021-05-06] MEDS ORDERED: Pantoprazole 40 MG in Sodium Chloride 0.9% 10 ML IV ONE (13:39)
[2021-05-06] MEDS ORDERED: Ondansetron 4 MG/2 ML SDV IVPUSH ONE (13:39)
--- NOTE | 2021-05-06 13:42 | EDM.PDOC ---
ED HPI GENERAL MEDICAL PROBLEM - General Chief Complaint: Gastrointestinal Problem Stated Complaint: EMS Time Seen by Provider: 05/06/21 13:37 - History of Present Illness INITIAL COMMENTS - FREE TEXT/NARRATIVE: History of present illness: [] This 30-year-old gentleman has had cough body aches nausea chills and headache with fever for 16 days. 11 days ago he was diagnosed Covid positive and his cough persist. He has been told he has Covid pneumonia. On top of this he presents with 2 days of intermittent epigastric pain and right upper quadrant pain associated with nausea without vomiting. He is diaphoretic more so when he has the pain. Eating makes him feel like he has indigestion and the pain radiates up into his anterior chest and feels like heartburn. He is a non- smoker and not diabetic with a negative family history of coronary vessel disease or stroke. Review of systems: As per history of present illness and below otherwise all systems reviewed and negative. Past medical history: As per history of present illness and as reviewed below otherwise noncontributory. Surgical history: As per history of present illness and as reviewed below otherwise noncontributory. Social history: No reported history of drug or alcohol abuse. Family history: As per history of present illness and as reviewed below otherwise noncontributory. Physical exam: Constitutional - well developed, well-nourished and in no acute distress HEENT - normocephalic, no evidence of trauma - external nose and mouth normal - no mass in neck and no JVD - mucosae moist EYES - full EOM, PERRL, no icterus - no evidence of inflammation, injection, or drainage Respiratory - no respiratory distress, equal bilateral expansion, lungs clear to auscultation and no abnormal lung sounds Cardiovascular - Regular Rhythm with S1 and S2 appreciated and no murmur, gallop or rub. GI - abdomen tender epigastrium and right upper quadrant-Walls sign positive- soft without distension or organomegaly - normal bowel sounds - no guard or rebound Musculoskeletal no gross deformity of long bones or joints - no tenderness, swelling or edema Neurologic - Alert and oriented times four - CN II-XII grossly intact - motor sensory and coordination symmetrically normal Psychiatric - appropriate mood and affect with normal thought content Hematologic - No petechiae or purpura - mucosa appropriate color and sclera not pale - normal nail bed color and refill Integument - no rash or evidence of trauma - normal turgor Diagnostics: [] Therapeutics: [] Impression: [] Plan: [] Definitive disposition and diagnosis as appropriate pending reevaluation and review of above. Epigastric Pain Score (Numeric/FACES): 10 - Related Data Allergies Allergy/AdvReac Type Severity Reaction Status Date / Time No Known Allergies Allergy Verified 05/06/21 13:31 Home Meds: Home Meds Ondansetron [Zofran ODT] 4 mg PO Q6H PRN #8 tab.dis 04/26/21 [Rx] dexAMETHasone [Decadron] 6 mg PO DAILY #7 tablet 04/30/21 [Rx] Pantoprazole [ProTONIX] 40 mg PO DAILY 5 Days #5 tab.cr 05/06/21 [Rx] dexAMETHasone [Dexamethasone] 6 mg PO DAILY 5 Days #8 tablet 05/06/21 [Rx] levoFLOXacin [Levaquin] 750 mg PO DAILY 7 Days #7 tab 05/06/21 [Rx] Past Medical History - Past Health History Medical/Surgical History: Denies Medical/Surgical History HEENT History: Reports: None Cardiovascular History: Reports: Other (See Below) Other Cardiovascular History: "pre hypertension" Respiratory History: Reports: Other (See Below) Other Respiratory History: covid 04/30/21 Gastrointestinal History: Reports: None Genitourinary History: Reports: None Musculoskeletal History: Reports: None Neurological History: Reports: None Psychiatric History: Reports: None Endocrine/Metabolic History: Reports: None Hematologic History: Reports: None Immunologic History: Reports: None Oncologic (Cancer) History: Reports: None Dermatologic History: Reports: None - Infectious Disease History Infectious Disease History: Reports: Chicken Pox - Past Surgical History Head Surgeries/Procedures: Reports: None Social & Family History - Family History Family Medical History: No Pertinent Family History - Tobacco Use Tobacco Use Status *Q: Never Tobacco User - Caffeine Use Caffeine Use: Reports: None - Recreational Drug Use Recreational Drug Use: No ED ROS GENERAL - Review of Systems Review Of Systems: Comprehensive ROS is negative, except as noted in HPI. ED EXAM, GENERAL - Physical Exam Exam: See Below Free Text/Narrative:: My history and physical in the HPI. #1 Interpretation EKG Interpretation Comments: EKG dated 05/06/2021 at 1:41 PM shows a sinus rhythm with a heart rate of 86 LA interval 137 QT duration 418 and [place] XX 5. Normal QRS normal ST and T compared to 04/30/2021 no change except rate impression normal EKG Course - Vital Signs Last Recorded V/S: Last Vital Signs Temp 35.8 C L 05/06/21 13:31 Pulse 102 H 05/06/21 13:31 Resp 20 05/06/21 13:31 BP 140/90 05/06/21 13:31 Pulse Ox 93 L 05/06/21 13:31 - Orders/Labs/Meds Orders: Active Orders 24 hr Category Date Time Status Specimens to Lab, Nursing [RC] ASDIRECTED Care 05/06/21 15:54 Ordered AFB STAIN WITH CULTURE Stat Lab 05/06/21 15:54 Ordered Sodium Chloride 0.9% [Saline Flush] Med 05/06/21 13:39 Active 10 ml FLUSH ASDIRECTED PRN Sodium Chloride 0.9% [Saline Flush] Med 05/06/21 13:39 Active 2.5 ml FLUSH ASDIRECTED PRN Saline Lock Insert [OM.PC] Stat Oth 05/06/21 13:39 Ordered Medication Orders Sodium Chloride (Sodium Chloride 0.9% 10 Ml Syringe) 10 ml FLUSH ASDIRECTED PRN PRN Reason: Keep Vein Open Last Admin: 05/06/21 13:53 Dose: 10 ml Documented by: ERIC Sodium Chloride (Sodium Chloride 0.9% 2.5 Ml Syringe) 2.5 ml FLUSH ASDIRECTED PRN PRN Reason: Keep Vein Open Last Admin: 05/06/21 13:52 Dose: 2.5 ml Documented by: ERIC Labs: Laboratory Tests 05/06/21 05/06/21 05/06/21 Range/Units 13:30 13:30 14:31 WBC 14.03 H (4.0-11.0) K/uL RBC 4.80 (4.50-5.90) M/uL Hgb 15.2 (13.0-17.0) g/dL Hct 43.1 (38.0-50.0) % MCV 89.8 (80.0-98.0) fL MCH 31.7 (27.0-32.0) pg MCHC 35.3 (31.0-37.0) g/dL RDW Std Deviation 38.1 (28.0-62.0) fl RDW Coeff of Angelica 12 (11.0-15.0) % Plt Count 529 H (150-400) K/uL MPV 9.60 (7.40-12.00) fL Neut % (Auto) 77.7 (48.0-80.0) % Lymph % (Auto) 15.0 L (16.0-40.0) % [place] % (Auto) 7.1 (0.0-15.0) % Eos % (Auto) 0.1 (0.0-7.0) % Baso % (Auto) 0.1 (0.0-1.5) % Neut # (Auto) 10.9 H (1.4-5.7) K/uL Lymph # (Auto) 2.1 (0.6-2.4) K/uL [place] # (Auto) 1.0 H (0.0-0.8) K/uL Eos # (Auto) 0.0 (0.0-0.7) K/uL Baso # (Auto) 0.0 (0.0-0.1) K/uL Nucleated RBC % 0.0 /100WBC Nucleated RBCs # 0 K/uL Sodium 136 (136-148) mmol/L Potassium 4.5 (3.5-5.1) mmol/L Chloride 101 (98-107) mmol/L Carbon Dioxide 28.3 (21.0-32.0) mmol/L BUN 17 (7.0-18.0) mg/dL Creatinine 1.3 (0.8-1.3) mg/dL Est Cr Clr Drug Dosing 77.68 mL/min Estimated GFR (MDRD) > 60.0 ml/min Glucose 185 H (74-106) mg/dL Calcium 9.0 (8.5-10.1) mg/dL Total Bilirubin 1.0 (0.2-1.0) mg/dL AST 100 H (15-37) IU/L ALT 226 H (14-63) IU/L Alkaline Phosphatase 68 (46-116) U/L Troponin I < 0.050 (0.000-0.056) ng/mL Total Protein 7.6 (6.4-8.2) g/dL Albumin 3.6 (3.4-5.0) g/dL Globulin 4.0 (2.6-4.0) g/dL Albumin/Globulin Ratio 0.9 (0.9-1.6) Lipase 170 (73-393) U/L SARS-CoV-2 RNA (RONALD) POSITIVE H (NEGATIVE) Meds: Medications Generic Name Dose Route Start Last Admin Trade Name Freq PRN Reason Stop Dose Admin Sodium Chloride 10 ml 05/06/21 13:39 05/06/21 13:53 Sodium Chloride 0.9% 10 Ml Syringe FLUSH 10 ml ASDIRECTED PRN Administration Keep Vein Open Sodium Chloride 2.5 ml 05/06/21 13:39 05/06/21 13:52 Sodium Chloride 0.9% 2.5 Ml Syringe FLUSH 2.5 ml ASDIRECTED PRN Administration Keep Vein Open Discontinued Medications Generic Name Dose Route Start Last Admin Trade Name Freq PRN Reason Stop Dose Admin Pantoprazole Sodium 40 mg/ 10 mls @ 300 mls/hr 05/06/21 13:39 05/06/21 13:52 Sodium Chloride IV 05/06/21 13:40 300 mls/hr NOW ONE Administration Ondansetron HCl 4 mg 05/06/21 13:39 05/06/21 13:52 Ondansetron 4 Mg/2 Ml Sdv IVPUSH 05/06/21 13:40 4 mg ONETIME ONE Administration Departure - Departure Time of Disposition: 15:57 Disposition: Home, Self-Care 01 Condition: Good Clinical Impression: COVID-19, Bilateral pneumonia, Elevated transaminase level - Discharge Information Prescriptions: dexAMETHasone [Dexamethasone] 6 mg PO DAILY 5 Days #8 tablet levoFLOXacin [Levaquin] 750 mg PO DAILY 7 Days #7 tab Pantoprazole [ProTONIX] 40 mg PO DAILY 5 Days #5 tab.cr Instructions: COVID-19 Vaccine Information, COVID-19 Frequently Asked Questions, Community-Acquired Pneumonia, Adult, [id number], COVID-19: Quarantine vs. Isolation - [facility] (08/13/2020), 10 Things You Can Do to Manage Your COVID-19 Symptoms at Home - [facility] (02/26/2020) Forms: ED Department Discharge Additional Instructions: [facility] - Primary Care [address] [place] [id number] [facility] [address] [place] [id number] The following information is given to patients seen in the emergency department who are being discharged to home. This information is to outline your options for follow-up care. We provide all patients seen in our emergency department with a follow-up referral. The need for follow-up, as well as the timing and circumstances, are variable depending upon the specifics of your emergency department visit. If you don't have a primary care physician on staff, we will provide you with a referral. We always advise you to contact your personal physician following an emergency department visit to inform them of the circumstance of the visit and for follow-up with them and/or the need for any referrals to a consulting specialist. The emergency department will also refer you to a specialist when appropriate. This referral assures that you have the opportunity for follow-up care with a specialist. All of these measure are taken in an effort to provide you with optimal care, which includes your follow-up. Under all circumstances we always encourage you to contact your private physician who remains a resource for coordinating your care. When calling for follow-up care, please make the office aware that this follow-up is from your recent emergency room visit. If for any reason you are refused follow-up, please contact the [facility] Emergency Department at and asked to speak to the emergency department charge nurse. Sepsis Event Note (ED) - Evaluation Sepsis Screening Result: Possible Sepsis Risk - Focused Exam Vital Signs: Vital Signs Temp Pulse Resp BP Pulse Ox 05/06/21 13:31 35.8 C L 102 H 20 140/90 93 L - My Orders Last 24 Hours: My Active Orders 05/06/21 13:39 Sodium Chloride 0.9% [Saline Flush] 10 ml FLUSH ASDIRECTED PRN Sodium Chloride 0.9% [Saline Flush] 2.5 ml FLUSH ASDIRECTED PRN Saline Lock Insert [OM.PC] Stat 05/06/21 15:54 Specimens to Lab, Nursing [RC] ASDIRECTED AFB STAIN WITH CULTURE Stat - Assessment/Plan Last 24 Hours: My Active Orders 05/06/21 13:39 Sodium Chloride 0.9% [Saline Flush] 10 ml FLUSH ASDIRECTED PRN Sodium Chloride 0.9% [Saline Flush] 2.5 ml FLUSH ASDIRECTED PRN Saline Lock Insert [OM.PC] Stat 05/06/21 15:54 Specimens to Lab, Nursing [RC] ASDIRECTED AFB STAIN WITH CULTURE Stat
[2021-05-06 14:19] LABS: BLOOD UREA NITROGEN,BUN 17 mg/dL (7.0-18.0); CARBON DIOXIDE,CO2 28.3 mmol/L (21.0-32.0); CHLORIDE,CL 101 mmol/L (98-107); GLUCOSE RANDOM 185 mg/dL (74-106); LIPASE 170 U/L (73-393); POTASSIUM,K 4.5 mmol/L (3.5-5.1); SODIUM,NA 136 mmol/L (136-148)
--- NOTE | 2021-05-06 15:02 | US ---
INDICATION: Right upper quadrant abdominal pain; COVID-19 positive COMPARISON: CT angio chest with intravenous contrast April 30, 2021. TECHNIQUE: Ultrasound examination of the right upper quadrant of the abdomen. FINDINGS: the liver is measuring 17.4 cm in the maximum vertical dimension. No focal hepatic pathology. Increased echogenicity of the liver secondary to fatty infiltration. Suboptimal visualization of the pancreas secondary to the patient`s body habitus. No evidence of cholelithiasis. 4 mm echogenic density attached to the wall of the gallbladder non mobile; rule out gallbladder polyp. No pericholecystic fluid collections. Sonographic Walls`s sign is negative. Nondilated common bile duct measuring 3 mm in diameter. The right kidney is measuring 10.3 x 5.5 x 5.7 cm without any obstructive uropathy or perinephric pathology. IMPRESSION: 1. Fatty liver. 2. Possible 4 mm gallbladder polyp. 3. Sonographic Walls`s sign is negative. 4. Pancreas is not adequately visualized. Dictated by Casimiro Bocanegra MD @ 05/06/2021 2:59:48 PM (Electronically Signed)
== END 2021-05-06 16:39 | disposition home or self-care (01) ==
LOC: MW.ED 13:29
DX: U07.1 COVID-19 (principal); J12.82 Pneumonia due to coronavirus disease 2019; R74.01 Elevation of levels of liver transaminase levels; Z79.899 Other long term (current) drug therapy
CPT/HCPCS: 36415; 76705; 80053; 83690; 84484; 85025; 87635; 93005; 96365; 96375; 99284; C9113; J2405; U0002

== ENCOUNTER 2021-05-07 19:38 | Emergency (ER) | payer OTHER, BC ==
[2021-05-07] MEDS ORDERED: Simethicone 80 MG Tab.Chew PO ONE (20:08)
--- NOTE | 2021-05-07 20:11 | EDM.PDOC ---
ED HPI GENERAL MEDICAL PROBLEM - General Chief Complaint: Gastrointestinal Problem Stated Complaint: ACID REFLUX, NOT IMPROVING Time Seen by Provider: 05/07/21 19:42 Source of Information: Reports: Patient History Limitations: Reports: No Limitations - History of Present Illness INITIAL COMMENTS - FREE TEXT/NARRATIVE: Patient is a 30-year-old male who presents today for acid reflux. Patient was diagnosed with Covid and has come to the ER multiple times in the past few days. Per patient is Covid symptoms have improved his breathing is at baseline he does not have any chest pain he is able to walk without becoming fatigue he is feeling better from the standpoint. Patient was placed on levofloxacin and also Decadron and says some stomach acid. He was seen for this yesterday had ultrasound labs EKG 0 within normal limits. He came back today because he wanted know if he can increase his dose of pantoprazole. Patient still eating and drinking as normal states he still is ambulating is normal has no nausea vomiting or other complaints. acid reflux Pain Score (Numeric/FACES): 4 - Related Data Allergies Allergy/AdvReac Type Severity Reaction Status Date / Time No Known Allergies Allergy Verified 05/07/21 19:44 Home Meds: Home Meds Ondansetron [Zofran ODT] 4 mg PO Q6H PRN #8 tab.dis 04/26/21 [Rx] dexAMETHasone [Decadron] 6 mg PO DAILY #7 tablet 04/30/21 [Rx] Pantoprazole [ProTONIX] 40 mg PO DAILY 5 Days #5 tab.cr 05/06/21 [Rx] dexAMETHasone [Dexamethasone] 6 mg PO DAILY 5 Days #8 tablet 05/06/21 [Rx] levoFLOXacin [Levaquin] 750 mg PO DAILY 7 Days #7 tab 05/06/21 [Rx] Past Medical History - Past Health History Medical/Surgical History: Denies Medical/Surgical History HEENT History: Reports: None Cardiovascular History: Reports: Other (See Below) Other Cardiovascular History: "pre hypertension" Respiratory History: Reports: Other (See Below) Other Respiratory History: covid 04/30/21 Gastrointestinal History: Reports: None Genitourinary History: Reports: None Musculoskeletal History: Reports: None Neurological History: Reports: None Psychiatric History: Reports: None Endocrine/Metabolic History: Reports: None Hematologic History: Reports: None Immunologic History: Reports: None Oncologic (Cancer) History: Reports: None Dermatologic History: Reports: None - Infectious Disease History Infectious Disease History: Reports: Chicken Pox, Novel Coronavirus - Past Surgical History Head Surgeries/Procedures: Reports: None Social & Family History - Family History Family Medical History: No Pertinent Family History - Tobacco Use Tobacco Use Status *Q: Never Tobacco User - Caffeine Use Caffeine Use: Reports: Coffee, Tea - Recreational Drug Use Recreational Drug Use: No ED ROS GENERAL - Review of Systems Review Of Systems: See Below Constitutional: Reports: No Symptoms HEENT: Reports: No Symptoms Respiratory: Reports: No Symptoms Cardiovascular: Reports: No Symptoms Endocrine: Reports: No Symptoms GI/Abdominal: Reports: Other (Epigastric burning) : Reports: No Symptoms Musculoskeletal: Reports: No Symptoms Skin: Reports: No Symptoms Neurological: Reports: No Symptoms Psychiatric: Reports: No Symptoms Hematologic/Lymphatic: Reports: No Symptoms Immunologic: Reports: No Symptoms ED EXAM, GI/ABD - Physical Exam Exam: See Below Exam Limited By: No Limitations General Appearance: Alert, WD/WN, No Apparent Distress Respiratory/Chest: No Respiratory Distress, Lungs Clear, Normal Breath Sounds Cardiovascular: Normal Peripheral Pulses, Regular Rate, Rhythm GI/Abdominal Exam: Normal Bowel Sounds, Soft, Non-Tender Extremities: Normal Inspection, Normal Range of Motion Neurological: Alert, Oriented, Normal Cognition, Normal Gait #1 Interpretation EKG Date: 05/07/21 Time: 20:17 Rhythm: NSR Rate (Beats/Min): 95 ST-T: Normal Course - Vital Signs Last Recorded V/S: Last Vital Signs Temp 96.3 F L 05/07/21 19:45 Pulse 104 H 05/07/21 19:45 Resp 18 05/07/21 19:45 BP Pulse Ox 91 L 05/07/21 19:45 - Orders/Labs/Meds Meds: Medications Discontinued Medications Generic Name Dose Route Start Last Admin Trade Name Freq PRN Reason Stop Dose Admin Simethicone 80 mg 05/07/21 20:08 05/07/21 20:15 Simethicone 80 Mg Tab.Chew PO 05/07/21 20:09 80 mg ONETIME ONE Administration - Re-Assessments/Exams Free Text/Narrative Re-Assessment/Exam: 05/07/21 20:47 Patient was given simethicone. Patient EKG shows sinus rhythm. Patient again seems to be at his baseline looks well will be discharged home to follow-up with his PMD. Departure - Departure Time of Disposition: 20:48 Disposition: Home, Self-Care 01 Condition: Good Clinical Impression: Epigastric burning sensation - Discharge Information *PRESCRIPTION DRUG MONITORING PROGRAM REVIEWED*: Not Applicable *COPY OF PRESCRIPTION DRUG MONITORING REPORT IN PATIENT KENDELL: Not Applicable Instructions: Heartburn, [id number] Referrals: Misbah Crowell MD [Primary Care Provider] - Forms: ED Department Discharge Additional Instructions: The following information is given to patients seen in the emergency department who are being discharged to home. This information is to outline your options for follow-up care. We provide all patients seen in our emergency department with a follow-up referral. The need for follow-up, as well as the timing and circumstances, are variable depending upon the specifics of your emergency department visit. If you don't have a primary care physician on staff, we will provide you with a referral. We always advise you to contact your personal physician following an emergency department visit to inform them of the circumstance of the visit and for follow-up with them and/or the need for any referrals to a consulting specialist. The emergency department will also refer you to a specialist when appropriate. This referral assures that you have the opportunity for follow-up care with a specialist. All of these measure are taken in an effort to provide you with optimal care, which includes your follow-up. Under all circumstances we always encourage you to contact your private physician who remains a resource for coordinating your care. When calling for follow-up care, please make the office aware that this follow-up is from your recent emergency room visit. If for any reason you are refused follow-up, please contact the [facility] Emergency Department at and asked to speak to the emergency department charge nurse. Please follow up with your primary care physician. If you do not have a primary care physician, see below: [facility] [address] [place] [address] [id number] [facility] [address] [place] [id number] You were seen today for burning-like sensation in your epigastric area. You are given medication yesterday she states slightly helped for 1 if you can take it twice. We added on the medication that you can take that should help out with this epigastric pain. Your breathing hearing seems to be at his baseline. Recommend you please follow-up to primary care physician if you have any other concerning signs or symptoms. Sepsis Event Note (ED) - Evaluation Sepsis Screening Result: No Definite Risk - Focused Exam Vital Signs: Vital Signs Temp Pulse Resp Pulse Ox 05/07/21 19:45 96.3 F L 104 H 18 91 L - Assessment/Plan Plan: Patient is a 30-year-old male who presents today for epigastric burning. Patient exam looks well his Covid symptoms are improving. Vital seem to be at his baseline he is on nasal cannula satting 93 to 95% range. No abdominal tenderness. We will obtain EKG try to provide something for his GERD and likely discharge home.
== END 2021-05-07 21:00 | disposition home or self-care (01) ==
LOC: MW.ED 19:38
DX: R19.8 Other specified symptoms and signs involving the digestive system and abdomen (principal); Z86.16 Personal history of COVID-19
CPT/HCPCS: 93005; 99283; A9270

== ENCOUNTER 2021-05-09 23:12 | Emergency (ER) | payer OTHER, BC ==
[2021-05-10] MEDS ORDERED: Simethicone 80 MG Tab.Chew PO ONE (00:03)
--- NOTE | 2021-05-10 00:05 | EDM.PDOC ---
ED HPI GENERAL MEDICAL PROBLEM - General Chief Complaint: Gastrointestinal Problem Stated Complaint: ABDOMINAL PAIN Time Seen by Provider: 05/09/21 23:48 - History of Present Illness INITIAL COMMENTS - FREE TEXT/NARRATIVE: History of present illness: [] Patient has burning up and down his esophagus. It is like prior esophagitis. He is on dexamethasone with 3 more days to go. This is for his COVID-19 infection diagnosed April 26. The patient got this before and got side of bath called and got instant complete relief. Review of systems: As per history of present illness and below otherwise all systems reviewed and negative. Past medical history: As per history of present illness and as reviewed below otherwise noncontributory. Surgical history: As per history of present illness and as reviewed below otherwise noncontributory. Social history: No reported history of drug or alcohol abuse. Family history: As per history of present illness and as reviewed below otherwise noncontributory. Physical exam: Constitutional - well developed, well-nourished and in no acute distress HEENT - normocephalic, no evidence of trauma - external nose and mouth normal - no mass in neck and no JVD - mucosae moist EYES - full EOM, PERRL, no icterus - no evidence of inflammation, injection, or drainage Respiratory - no respiratory distress, equal bilateral expansion, lungs clear to auscultation and no abnormal lung sounds Cardiovascular - Regular Rhythm with S1 and S2 appreciated and no murmur, gallop or rub. GI - abdomen soft without distension or organomegaly - normal bowel sounds - no guard or rebound Musculoskeletal no gross deformity of long bones or joints - no tenderness, swelling or edema Neurologic - Alert and oriented times four - CN II-XII grossly intact - motor sensory and coordination symmetrically normal Psychiatric - appropriate mood and affect with normal thought content Hematologic - No petechiae or purpura - mucosa appropriate color and sclera not pale - normal nail bed color and refill Integument - no rash or evidence of trauma - normal turgor Diagnostics: [] Therapeutics: [] Impression: [] Plan: [] Definitive disposition and diagnosis as appropriate pending reevaluation and review of above. - Related Data Allergies Allergy/AdvReac Type Severity Reaction Status Date / Time No Known Allergies Allergy Verified 05/07/21 19:44 Home Meds: Home Meds Ondansetron [Zofran ODT] 4 mg PO Q6H PRN #8 tab.dis 04/26/21 [Rx] dexAMETHasone [Decadron] 6 mg PO DAILY #7 tablet 04/30/21 [Rx] Pantoprazole [ProTONIX] 40 mg PO DAILY 5 Days #5 tab.cr 05/06/21 [Rx] dexAMETHasone [Dexamethasone] 6 mg PO DAILY 5 Days #8 tablet 05/06/21 [Rx] levoFLOXacin [Levaquin] 750 mg PO DAILY 7 Days #7 tab 05/06/21 [Rx] Pantoprazole 20 mg PO BIDAC 10 Days #20 tab.dr 05/07/21 [Rx] Past Medical History - Past Health History Medical/Surgical History: Denies Medical/Surgical History HEENT History: Reports: None Cardiovascular History: Reports: Other (See Below) Other Cardiovascular History: "pre hypertension" Respiratory History: Reports: Other (See Below) Other Respiratory History: covid 04/30/21 Gastrointestinal History: Reports: None Genitourinary History: Reports: None Musculoskeletal History: Reports: None Neurological History: Reports: None Psychiatric History: Reports: None Endocrine/Metabolic History: Reports: None Hematologic History: Reports: None Immunologic History: Reports: None Oncologic (Cancer) History: Reports: None Dermatologic History: Reports: None - Infectious Disease History Infectious Disease History: Reports: Chicken Pox, Novel Coronavirus - Past Surgical History Head Surgeries/Procedures: Reports: None Social & Family History - Family History Family Medical History: No Pertinent Family History - Tobacco Use Tobacco Use Status *Q: Never Tobacco User - Caffeine Use Caffeine Use: Reports: None - Recreational Drug Use Recreational Drug Use: No ED ROS GENERAL - Review of Systems Review Of Systems: Comprehensive ROS is negative, except as noted in HPI. ED EXAM, GENERAL - Physical Exam Exam: See Below Free Text/Narrative:: My physical exam is in the HPI Course - Vital Signs Text/Narrative:: 00 40 hours once again patient got complete relief immediately with simethicone. Last Recorded V/S: Last Vital Signs Temp 35.9 C L 05/09/21 23:35 Pulse 100 05/09/21 23:35 Resp 18 05/09/21 23:35 BP 141/79 H 05/09/21 23:35 Pulse Ox 95 05/09/21 23:35 - Orders/Labs/Meds Meds: Medications Discontinued Medications Generic Name Dose Route Start Last Admin Trade Name Freq PRN Reason Stop Dose Admin Simethicone 80 mg 05/10/21 00:03 05/10/21 00:16 Simethicone 80 Mg Tab.Chew PO 05/10/21 00:04 80 mg ONETIME ONE Administration Departure - Departure Time of Disposition: 00:40 Disposition: Home, Self-Care 01 Condition: Good Clinical Impression: Esophagitis - Discharge Information Instructions: Esophagitis Referrals: Misbah Crowell MD [Primary Care Provider] - Forms: ED Department Discharge Additional Instructions: Continue omeprazole. Simethicone is [id number]. [facility] [address] [place] [id number] [address] The following information is given to patients seen in the emergency department who are being discharged to home. This information is to outline your options for follow-up care. We provide all patients seen in our emergency department with a follow-up referral. The need for follow-up, as well as the timing and circumstances, are variable depending upon the specifics of your emergency department visit. If you don't have a primary care physician on staff, we will provide you with a referral. We always advise you to contact your personal physician following an emergency department visit to inform them of the circumstance of the visit and for follow-up with them and/or the need for any referrals to a consulting specialist. The emergency department will also refer you to a specialist when appropriate. This referral assures that you have the opportunity for follow-up care with a specialist. All of these measure are taken in an effort to provide you with optimal care, which includes your follow-up. Under all circumstances we always encourage you to contact your private physician who remains a resource for coordinating your care. When calling for follow-up care, please make the office aware that this follow-up is from your recent emergency room visit. If for any reason you are refused follow-up, please contact the [facility] Emergency Department at and asked to speak to the emergency department charge nurse. Sepsis Event Note (ED) - Evaluation Sepsis Screening Result: Possible Sepsis Risk - Focused Exam Vital Signs: Vital Signs Temp Pulse Resp BP Pulse Ox 05/09/21 23:35 35.9 C L 100 18 141/79 H 95
== END 2021-05-10 00:59 | disposition home or self-care (01) ==
LOC: MW.ED 23:12
DX: K20.90 Esophagitis, unspecified without bleeding (principal); Z79.899 Other long term (current) drug therapy
CPT/HCPCS: 99283; A9270

== ENCOUNTER 2023-12-21 08:11 | Emergency (ER) | payer BC, OTHER | END 2023-12-21 09:40 | disposition home or self-care (01) | LOC: MW.ED 08:11 | DX: S60.041A Contusion of right ring finger without damage to nail, initial encounter (principal); S60.051A Contusion of right little finger without damage to nail, initial encounter; S80.02XA Contusion of left knee, initial encounter; S80.01XA Contusion of right knee, initial encounter; Z79.899 Other long term (current) drug therapy; Z86.19 Personal history of other infectious and parasitic diseases; Z86.16 Personal history of COVID-19; Z75.8 Other problems related to medical facilities and other health care; W10.8XXA Fall (on) (from) other stairs and steps, initial encounter | CPT/HCPCS: 73130-26-RT; 73130-RT; 99282; 99283 ==